=== PATIENT | female | born 1950 | race Caucasian/White ===

== ENCOUNTER 2018-08-21 09:22 | Inpatient (IN) ==
--- NOTE | 2018-08-21 09:36 | Emergency Department Note ---
ED Disposition Clinical Impression: COPD exacerbation, Tobacco use disorder, Respiratory failure with hypercapnia, LLL pneumonia, Leukemoid reaction Disposition: Still a Patient Condition on Discharge: Serious Referrals: Provider,Referral, MD [Primary Care Provider] - - Critical Care Critical Care Time: Yes Attestation: On , the high probability of a clinically significant, sudden or life threatenin g deterioration of the following system(s) required my full and direct attention, intervention and personal management. The time I documented below is in addition to time spent performing reported procedures but includes the following listed in this critical care notation. Total Critical Care Time: 30 Vital system(s) involved:: Respiratory Failure My critical care processes included: Assessment & monitoring of V/S, Initial and Re-exams, Data Review/Interpretation, Coordinating Care, Medication Orders and management, Documentation Medical Decision Making - Medical Records Medical records reviewed: Yes: I reviewed the patient's medical records. - Ghanshyam Inquiry Pt receiving controlled substance: No Ghanshyam was queried for this patient: No Vital Signs: 08/21/18 09:23 08/21/18 09:44 Temperature 98.1 F Temperature Source Rectal Pulse Rate [Right Radial] 122 H 122 H Respiratory Rate 30 H Blood Pressure [Right Arm] 141/84 H 141/84 H Blood Pressure Mean [Right Arm] 103 103 Blood Pressure Source [Right Arm] Automatic Cuff Automatic Cuff Blood Pressure Position [Right Arm] Supine Supine 02 Sat by Pulse Oximetry 99 Oxygen Delivery Method Non-Rebreather - Lab Data Lab Results 08/21/18 09:26: Specimen Source Right radial, O2 % 100, ABG pH 7.32 L, ABG pCO2 58.3 H, ABG pO2 76.0 L, ABG HCO3 29.5 H, ABG Total CO2 31.3 H, ABG O2 Saturation 94, ABG Base Excess 3.4 H, José Miguel Test Acceptable 08/21/18 10:00: WBC 66.8 H*, RBC 4.98, Hgb 15.7, Hct 48.3 H, MCV 97.2, MCH 31.5 H, MCHC 32.4, RDW 15.8, Plt Count 451 H, MPV 8.6, Neut % (Auto) 93.7 H, Lymph % (Auto) 0.8 L, [place] % (Auto) 4.5, Eos % (Auto) 0.1, Baso % (Auto) 1.0, Neut # (Auto) 62.6 H, Lymph # (Auto) 0.5 L, [place] # (Auto) 3.0 H, Eos # (Auto) 0.0, Baso # (Auto) 0.7 H 08/21/18 10:00: Sodium 138, Potassium 2.6 L*, Chloride 96 L, Carbon Dioxide 31, Anion Gap 13.6, BUN 56 H, Creatinine 1.18 H, Estimated Creat Clear 34, Estimated GFR 46 L, Est GFR ( Amer) 55 L, Glucose 197 H, Calcium 9.0, Total Bilirubin 1.9 H, AST 43 H, ALT 27, Alkaline Phosphatase 199 H, Troponin I < 0.02, Total Protein 7.4, Albumin 1.9 L, Globulin 5.5 H, Albumin/Globulin Ratio 0.3 L 08/21/18 10:00: Lactate 4.3 H Result diagrams: 08/21/18 10:00 08/21/18 10:00 Orders (Tests/Meds): ED MEDICATIONS Generic Name Dose Route Start Last Admin Trade Name Freq PRN Reason Stop Dose Admin Albuterol/Ipratropium 3 ml 08/21/18 09:30 08/21/18 09:48 Duoneb 3ml [facility] 09/20/18 09:29 3 ml Q1H CHICA Administration Azithromycin 500 mg/ Sodium 250 mls @ 250 mls/hr 08/21/18 10:45 Chloride IV 09/04/18 10:44 Q24H CHICA Protocol Potassium Chloride/Sodium Chloride 1,000 mls @ 75 mls/hr 08/21/18 10:45 Kcl 20 Meq In Ns 1,000 Ml Iv Soln IV 09/20/18 10:44 .[id number] CHICA Sodium Chloride 1,000 mls @ 999 mls/hr 08/21/18 10:45 Sod Chlor 0.9% 1000ml Bag IV 08/21/18 11:45 .Q1H1M CHICA Sodium Chloride 3 ml 08/21/18 09:44 Sodium Chloride 3% 15ml [facility] 09/20/18 09:43 ONCE PRN INDUCE SPUTUM COLLECTION Discontinued Medications Generic Name Dose Route Start Last Admin Trade Name Freq PRN Reason Stop Dose Admin Ceftriaxone Sodium 1 gm/ 50 mls @ 100 mls/hr 08/21/18 09:29 05/21/19 09:52 Sodium Chloride IV 08/21/18 09:58 100 mls/hr ONCE ONE Administration Protocol Sodium Chloride 1,000 mls @ 999 mls/hr 08/21/18 09:30 08/21/18 09:52 Sod Chlor 0.9% 1000ml Bag IV 08/21/18 10:30 999 mls/hr .Q1H1M CHICA Administration Methylprednisolone Sodium Succinate 125 mg 08/21/18 09:29 08/21/18 09:47 Solu-Medrol 125mg/2ml Vial IV 08/21/18 09:30 125 mg ONCE ONE Administration Nitroglycerin 0.5 gm 08/21/18 09:29 Nitroglycerin 1 Inch Oint Udp TD 08/21/18 09:30 ONCE ONE Potassium Chloride 40 meq 08/21/18 10:36 Klor-Con 20meq Tablet PO 08/21/18 10:37 ONCE ONE ORDERS Category Date Time Status Chest XR -- portable [XR chest portable] Stat Exams 08/21/18 09:27 Taken B-Type Natriuretic Peptide Stat Lab 08/21/18 10:00 Received Complete Blood Count Auto Diff Stat Lab 08/21/18 10:00 Results UA [Urinalysis and Microscopic] Stat Lab 08/21/18 09:26 Ordered Blood Culture Stat Micro 08/21/18 10:00 Received Sputum Culture & Gram Stain Stat Micro 08/21/18 09:44 Ordered ECG Request by /Tiki Stat Y 08/21/18 09:26 Ordered - Radiology Data #1 Image(s): Chest Image Reviewed: Yes I reviewed the patient's radiology image Preliminary Findings: Abnormal Preliminary chest x-ray read by the prior by the emergency medicine physician. Left lower lobe infiltrates. Medical Decision Narrative: The patient's blood gas was 7.32/50 8/76 oxygen saturation is 94 base excess of 3.4 and CO2 is 29.5. The patient started on BiPAP for impending acute respiratory failure. 0955 I spoke briefly with her son who is on the way and she is a full code, she has no local primary care physician. Son stated he will be here shortly. 1010 her son Mj Schilling arrived and we discussed her clinical situation. Both the patient and her son are agreeable for a BiPAP and intubation if needed for short-term. She denied having history of leukemia. She did have prior elevated white count. [address] Cline who agreed to admit the patient for pneumonia and respiratory failure protocol. Resp/SOB HPI - General Stated Complaint: SOB Time Seen by Provider: 08/21/18 09:25 Mode of Arrival: Ambulatory Source of Information: Patient, EMS Limitations: Physical Limitations - History of Present Illness 68 years old white female COPD oxygen dependent who continues to smoke. The patient reports that she has been short of breath for the past week with cough, chest congestion and progressively getting short of breath. Today her son contacted the EMS upon arrival her oxygen saturation was in the 70%s on 3 L/min [place]. The EMS staff increase her oxygen to 6 L with improvement of her oxygenation to 90% and she was brought to the ED. On arrival to the ED the patient was in a moderate respiratory distress, tachypnea, speaking short sentences and using abdominal muscle for respiration, her blood pressure was 163/108 mmHg and heart rate of 77/minute. The patient was placed on nonrebreather, ordered neb treatment, blood gases, BiPAP 8/4 with 100% oxygen and stat chest x-ray. Nursing staff obtained pneumonia blood work. She will be assisted regularly for impending acute respiratory failure. No family on the bedside. MD Complaint: shortness of breath Onset (ago): week(s) (The patient reports symptoms started a week ago.) Severity: moderate Consistency/Duration: constant Relieving factors: oxygen, bronchodilators, upright position Exacerbating factors: lying flat Known history of: COPD Associated symptoms: fever, cough, sputum production Treatment prior to arrival: oxygen - Related Data Home oxygen amount: other (6 L nasal cannula by EMS crew.) Home Medications Medication Instructions Recorded Confirmed Unobtainable 08/21/18 08/21/18 Allergies Allergy/AdvReac Type Severity Reaction Status Date / Time Sulfa (Sulfonamide AdvReac Mild NA-NAUSEA Verified 08/21/18 09:47 Antibiotics) [facility] History - Hepatitis A Screen Attestation statement:: This patient has been screened for Hepatitis A risk factors. I have reviewed the patient's past medical history: Yes ROS Obtained: Yes All systems reviewed & no additional complaints Physical Exam - General General appearance: alert, in distress, other (The patient is in moderate respiratory distress, speaking short sentences and using accessory muscles.) - Head Head exam: atraumatic, normocephalic, normal inspection - Eye Eye exam: Present: normal appearance, PERRL, EOMI. Absent: scleral icterus, nystagmus - ENT ENT exam: Present: normal exam, normal oropharynx, mucous membranes dry, TM's normal bilaterally, normal external ear exam, other (Patient seems dehydrated with dry tongue. ) - Neck Neck exam: Present: normal inspection, full ROM, trachea midline. Absent: meningismus, lymphadenopathy - Chest Chest inspection: Present: normal inspection. Absent: tenderness, rash, abscess - Respiratory Respiratory exam: Present: respiratory distress, wheezes, accessory muscle use, other (Bilateral coarse respiratory sounds worse on the right than left. ) - Cardiovascular Cardiovascular exam: Present: regular rate, normal rhythm, normal heart sounds. Absent: JVD - Abdominal Exam Abdominal exam: Present: soft, normal bowel sounds, other (Equal strong and symmetrical femoral pulsation. ). Absent: distention, tenderness, guarding, rebound, rigidity, Jones's sign, tenderness at McBurney's Point - External exam: Present: normal external exam - Extremities Exam Extremities exam: Present: normal inspection, full ROM, normal capillary refill. Absent: tenderness, pedal edema, calf tenderness - Back Exam Back exam: Absent: CVA tenderness (R), CVA tenderness (L), paraspinal tenderness - Neurological Exam Neurological exam: Present: alert, CN II-XII intact, motor sensory deficit, reflexes normal - Skin Skin exam: Present: dry, intact, pallor - Lymphatic Lymphatic Findings: no adenopathy
[2018-08-21 09:37] LABS: ABG Base Excess 3.4 mmol/L (-2.4-2.3); ABG HCO3 29.5 mmhg (22.0-26.0); ABG Oxygen Saturation 94 % (90-100); ABG PH 7.32 mmol/L (7.35-7.45); ABG TCO2 31.3 mmhg (23-27)
[2018-08-21 09:38] LABS: Allen's Test Acceptable; Oxygen 100 %
[2018-08-21 09:41] LABS: ABG PCO2 58.3 mmhg (35.0-45.0)
[2018-08-21 10:25] LABS: Basophils # 0.7 K/mm3 (0-0.2); Eosinophils % 0.1 % (0.1-12.0); Hematocrit 48.3 % (37.0-47.0); Hemoglobin 15.7 g/dL (12.2-16.2); Lymphocytes # 0.5 K/mm3 (0.7-4.5); Lymphocytes % 0.8 % (10-50); Mean Corpuscular HGB Conc 32.4 g/dL (31.8-35.4); Mean Corpuscular Hemoglobin 31.5 pg (27.0-31.2); Mean Corpuscular Volume 97.2 fl (81-99); Mean Platelet Volume 8.6 fl (7.4-10.4); Monocytes % 4.5 % (1.7-9.3); Neutrophils # 62.6 K/mm3 (1.8-7.8); Neutrophils % 93.7 % (37.0-80.0); Platelet Count 451 K/mm3 (142-424); Red Blood Count 4.98 M/mm3 (4.20-5.40); Red Cell Distribution Width 15.8 % (11.5-17.5)
[2018-08-21 10:26] LABS: White Blood Count 66.8 K/mm3 (4.8-10.8)
[2018-08-21 10:32] LABS: Alanine Aminotransferase 27 U/L (12-78); Albumin Level 1.9 gm/dL (3.4-5.0); Albumin/Globulin Ratio 0.3 (1.1-1.8); Alkaline Phosphatase 199 U/L (46-116); Anion Gap 13.6 mEq/L (5-15); Aspartate Amino Transferase 43 U/L (15-37); Bilirubin,Total 1.9 mg/dL (0.2-1.0); Blood Urea Nitrogen 56 mg/dL (7-18); Carbon Dioxide 31 mmol/L (21.0-32.0); Chloride 96 mmol/L (98-107); Globulin 5.5 gm/dl (1.3-3.2); Glucose 197 mg/dL (74-106); Sodium 138 mmol/L (136-145); Total Protein,Serum 7.4 gm/dL (6.4-8.2)
[2018-08-21 10:38] LABS: Potassium 2.6 mmoL/L (3.5-5.1)
[2018-08-21 10:44] LABS: Lymphocytes % 5 % (10-50); Neutrophils % 81 % (42-76); RBC Morphology Normal; Total Cells Counted 100
[2018-08-21 11:15] LABS: Microscopic, Urine URINE MICROSCOPIC (MICROSCOPIC)
[2018-08-21 11:26] LABS: Appearance,Urine SL CLOUDY (Clear); Blood, Urine 1+ (Negative); Color,Urine AMBER (Yellow); Glucose,Urine (UA) Negative (Negative); Ketones,Urine Negative (Negative); Leukocyte Esterase,Urine Negative (Negative); PH,Urine 5.5 (5.0-8.5); Protein,Urine 1+ (Negative); Specific Gravity, Urine 1.025 (1.005-1.030); Urobilinogen,Urine >=8.0 EU/dl (0.2)
[2018-08-21 11:33] LABS: Bilirubin,Urine Negative (Negative)
[2018-08-21 11:42] LABS: Amorphous Sediment,Urine 3+ /lpf; Bacteria,Urine 2+ /lpf; Squamous Epithelial Cell,Urine Occasional #/hpf (0-5)
--- NOTE | 2018-08-21 12:44 | History & Physical Report ---
*Admission Date: 08/21/18 <Daniella Rivers 08/21/18 13:59> *Chief complaint: shrtness of breath <Daniella Rivers 08/21/18 13:59> *History of present illness: From the ER note:Ms Schilling is a 68 year old white female with a history of COPD oxygen dependent who continues to smoke. The patient reports that she has been short of breath for the past week with cough, chest congestion and progressively getting short of breath. Today her son contacted the EMS. Upon arrival her oxygen saturation was in the 70's on 3 L/min per [place]. The EMS staff increase her oxygen to 6 L with improvement of her oxygenation to 90% and she was brought to the ED. On arrival to the ED the patient was in moderate respiratory distress, tachypnea, speaking short sentences and using abdominal muscle for respiration. Her blood pressure was 163/108 mmHg and heart rate 77/minute. The patient was placed on nonrebreather, ordered neb treatment, blood gases, BiPAP 8/ with 100% oxygen and stat chest x-ray. History also obtained from son.He noticed that she was not feeling well on 08/18/18 with weakness, cough and some confusion. With evaluation in the ER CXR revealed pneumonia with a possible underlying mass; WBC was 66,000 and K+ 2.6. ABG's revealed a respiratory acidosis with PO2 76. She was started on Zithromax and Rocephin and given duoneb< PO K+ and IV fluid bolus. At time of initial exam after arrival to Med/surg unit patient was in acute respiratory distress on BIPAP. She did try to answer questions but was difficult to understand. She was SOB and indicated abdominal pain. <Daniella Rivers 08/21/18 15:43> [facility] History Medical History: Reports:: Chronic Obstructive Pulmonary Disease (COPD), Depression Denies:: Diabetes Mellitus Type 1, Diabetes Mellitus Type 2 <RiversDaniella 08/21/18 15:43> *Have you ever received a pneumonia vaccine?: No <Daniella Rivers Yanelis 08/21/18 12:44> *Have you received a flu vaccine this season?: No <SilvestreDaniella - 08/21/18 12:44> Comment: unknown <Rivers,Daniella - 08/21/18 15:43> - *Social History Smoking Status: Current every day smoker <Daniella Rivers 08/21/18 15:43> # Packs/Day (cigarettes): 1 <Daniella Rivers Yanelis 08/21/18 15:43> Alcohol Intake: never <Daniella Rivers 08/21/18 12:44> *Occupational Status:: retired <Daniella Rivers Yanelis 08/21/18 12:44> Household Members: family <Daniella Rivers 08/21/18 15:43> *Travel in the last 8 weeks: None <Daniella Rivers 08/21/18 12:44> - Psychiatric History Expresses thoughts of harming self/others: None <SilvestreDaniella - 08/21/18 12:44> Suicide Plan Description: No Plan <Daniella Rivers 08/21/18 12:44> Pschychiatric History:: Reports:: Depression <SilvestreDaniella Yanelis 08/21/18 15:43> Family Hx:: Unable to obtain <SilvestreDaniella 08/21/18 15:43> Review of Systems - Constitutional Reports malaise, Reports weakness <SilvestreDaniella 08/21/18 15:43> - ENT Denies headache(s) <SilvestreDaniella 08/21/18 15:43> - *Cardiovascular Reports shortness of breath, Denies chest pain, Denies leg swelling <RiversDaniella 08/21/18 15:43> - *Respiratory Reports chest congestion, Reports cough, Reports shortness of breath <RiversDaniella 08/21/18 15:43> - *Gastrointestinal Reports abdominal pain, Reports nausea, Denies heartburn, Denies vomiting <RiversDaniella 08/21/18 15:43> Comments: does not know when her bowels last moveed <Rivers,Daniella - 08/21/18 15:43> - *Genitourinary Denies difficulty urinating <RiversDaniella 08/21/18 15:43> - *Musculoskeletal Reports abnormal walking, Reports muscle weakness <Rivers,Daniella 08/21/18 15:43> - *Neurologic Reports behavioral changes <SilvestreDaniella 08/21/18 15:43> Comments: AMS <SilvestreDaniella - 08/21/18 15:43> - Psychiatric Reports depression <Daniella Rivers - 08/21/18 15:43> Meds Home Medications Medication Instructions Recorded Confirmed Type Albuterol Sulfate [Albuterol 2.5 mg IH Q4HP PRN 08/21/18 08/21/18 History 0.083% 2.5mg/3mL neb] Clotrimazole/Betamethasone Dip 1 dose TOPICAL DAILY PRN 08/21/18 08/21/18 History [Lotrisone cream 15gm tube] Cyclobenzaprine HCl 10 mg PO TID PRN 08/21/18 08/21/18 History [Cyclobenzaprine 10mg Tab] Diclofenac Sodium [Diclofenac Sod 100 gm TP DAILY PRN 08/21/18 08/21/18 History 100gm Topical Gel] Fluticasone/Umeclidin/Vilanter 2 puffs INHALATION DAILY 08/21/18 08/21/18 History [Treleshania Ellipta 100-62.5-25] Linaclotide [Linzess] 145 mcg PO DAILY 08/21/18 08/21/18 History Pantoprazole Sodium [Protonix 40mg 40 mg PO DAILY 08/21/18 08/21/18 History tablet] Sertraline HCl [Zoloft 100mg 100 mg PO DAILY 08/21/18 08/21/18 History tablet] Valacyclovir HCl [Valacyclovir] 1 gm PO DAILY 08/21/18 08/21/18 History <Kevin Cline - 08/21/18 19:16> Allergies Allergy/AdvReac Type Severity Reaction Status Date / Time Sulfa (Sulfonamide AdvReac Mild NA-NAUSEA Verified 08/21/18 09:47 Antibiotics) <Kevin Cline - 08/21/18 19:16> Exam Vital signs and Labs for Last 24 Hours: Temp Pulse Resp BP Pulse Ox 98.2 F 120 H 37 H 113/65 93 L 08/21/18 13:00 08/21/18 17:30 08/21/18 17:30 08/21/18 17:30 08/21/18 17:30 Laboratory Results - last 24 hr 08/21/18 09:26: Specimen Source Right radial, O2 % 100, ABG pH 7.32 L, ABG pCO2 58.3 H, ABG pO2 76.0 L, ABG HCO3 29.5 H, ABG Total CO2 31.3 H, ABG O2 Saturation 94, ABG Base Excess 3.4 H, José Miguel Test Acceptable 08/21/18 10:00: WBC 66.8 H*, RBC 4.98, Hgb 15.7, Hct 48.3 H, MCV 97.2, MCH 31.5 H, MCHC 32.4, RDW 15.8, Plt Count 451 H, MPV 8.6, Neut % (Auto) 93.7 H, Lymph % (Auto) 0.8 L, [place] % (Auto) 4.5, Eos % (Auto) 0.1, Baso % (Auto) 1.0, Neut # (Auto) 62.6 H, Lymph # (Auto) 0.5 L, [place] # (Auto) 3.0 H, Eos # (Auto) 0.0, Baso # (Auto) 0.7 H, Total Counted 100, Neutrophils % (Manual) 81 H, Band Neutrophils % 14.0 H, Lymphocytes % (Manual) 5 L, Platelet Estimate Slight increase, RBC Morphology Normal 08/21/18 10:00: Sodium 138, Potassium 2.6 L*, Chloride 96 L, Carbon Dioxide 31, Anion Gap 13.6, BUN 56 H, Creatinine 1.18 H, Estimated Creat Clear 34, Estimated GFR 46 L, Est GFR ( Amer) 55 L, Glucose 197 H, Calcium 9.0, Total Bilirubin 1.9 H, AST 43 H, ALT 27, Alkaline Phosphatase 199 H, Troponin I < 0.02, Total Protein 7.4, Albumin 1.9 L, Globulin 5.5 H, Albumin/Globulin Ratio 0.3 L 08/21/18 10:00: Lactate 4.3 H 08/21/18 10:00: B-Natriuretic Peptide 1190 H 08/21/18 11:09: Urine Color Lucy, Urine Appearance Sl cloudy, Urine pH 5.5, Ur Specific [place] 1.025, Urine Protein 1+, Urine Glucose (UA) Negative, Urine Ketones Negative, Urine Blood 1+, Urine Nitrate Negative, Urine Bilirubin Negative, Urine Urobilinogen >=8.0, Ur Leukocyte Esterase Negative, Urine WBC 10-20, Ur Squamous Epith Cells Occasional, Ur Transition Epith Cell 3-5, Amorphous Sediment 3+, Urine Bacteria 2+ 08/21/18 13:00: Specimen Source Right radial, O2 % 50, ABG pH 7.22 L*, ABG pCO2 66.4 H, ABG pO2 66.6 L, ABG HCO3 26.7 H, ABG Total CO2 28.7 H, ABG O2 Saturation 89 L, ABG Base Excess -1.0, José Miguel Test Acceptable, Vent Rate 14, Tidal Volume Bipap 14/1008/21/18 14:30: Lactate 2.8 H 08/21/18 15:25: Specimen Source Right radial, O2 % 55, ABG pH 7.26 L, ABG pCO2 57.9 H, ABG pO2 109.6 H, ABG HCO3 25.5, ABG Total CO2 27.2 H, ABG O2 Saturation 98, ABG Base Excess -1.6, José Miguel Test Acceptable, Vent Rate 14, Tidal Volume Bipap 14/0108/21/18 17:12: Lactate 2.3 H <SonKevin Korey - 08/21/18 19:16> Temp Pulse Resp BP Pulse Ox 98.0 F 74 22 153/67 H 94 L 08/21/18 12:27 08/21/18 12:27 08/21/18 12:27 08/21/18 12:27 08/21/18 12:08 Laboratory Results - last 24 hr 08/21/18 09:26: Specimen Source Right radial, O2 % 100, ABG pH 7.32 L, ABG pCO2 58.3 H, ABG pO2 76.0 L, ABG HCO3 29.5 H, ABG Total CO2 31.3 H, ABG O2 Saturation 94, ABG Base Excess 3.4 H, José Miguel Test Acceptable 08/21/18 10:00: WBC 66.8 H*, RBC 4.98, Hgb 15.7, Hct 48.3 H, MCV 97.2, MCH 31.5 H, MCHC 32.4, RDW 15.8, Plt Count 451 H, MPV 8.6, Neut % (Auto) 93.7 H, Lymph % (Auto) 0.8 L, [place] % (Auto) 4.5, Eos % (Auto) 0.1, Baso % (Auto) 1.0, Neut # (Auto) 62.6 H, Lymph # (Auto) 0.5 L, [place] # (Auto) 3.0 H, Eos # (Auto) 0.0, Baso # (Auto) 0.7 H, Total Counted 100, Neutrophils % (Manual) 81 H, Band Neutrophils % 14.0 H, Lymphocytes % (Manual) 5 L, Platelet Estimate Slight increase, RBC Morphology Normal 08/21/18 10:00: Sodium 138, Potassium 2.6 L*, Chloride 96 L, Carbon Dioxide 31, Anion Gap 13.6, BUN 56 H, Creatinine 1.18 H, Estimated Creat Clear 34, Estimated GFR 46 L, Est GFR ( Amer) 55 L, Glucose 197 H, Calcium 9.0, Total Bilirubin 1.9 H, AST 43 H, ALT 27, Alkaline Phosphatase 199 H, Troponin I < 0.02, Total Protein 7.4, Albumin 1.9 L, Globulin 5.5 H, Albumin/Globulin Ratio 0.3 L 08/21/18 10:00: Lactate 4.3 H 08/21/18 11:09: Urine Color Lucy, Urine Appearance Sl cloudy, Urine pH 5.5, Ur Specific [place] 1.025, Urine Protein 1+, Urine Glucose (UA) Negative, Urine Ketones Negative, Urine Blood 1+, Urine Nitrate Negative, Urine Bilirubin Negative, Urine Urobilinogen >=8.0, Ur Leukocyte Esterase Negative, Urine WBC 10-20, Ur Squamous Epith Cells Occasional, Ur Transition Epith Cell 3-5, Amorphous Sediment 3+, Urine Bacteria 2+ <Daniella Rivers - 08/21/18 12:44> I & O for Last 24 hours: Intake & Output 08/19/18 08/20/18 08/21/18 08/22/18 11:59 11:59 11:59 11:59 Intake Total 580 / 580 Balance 580 / 580 Weight 100 lb 107 lb 9 oz <Kevin Cline - 08/21/18 19:16> Intake & Output 08/19/18 08/20/18 08/21/18 08/22/18 11:59 11:59 11:59 11:59 Weight 100 lb <Daniella Rivers - 08/21/18 12:44> Radiology Reports for the Last 24 Hours: 08/21/18 CXR IMPRESSION: 1. Opacified left mid and lower lung zone consistent with pneumonia with possible superimposed mass 2. Right apical pleural thickening nonspecific and could be post inflammatory scarring or pleural-based mass. This area was previously secured by pneumonia on 717 <[facility] 08/21/18 15:43> - Constitutional severe distress, thin, cooperative, somnolent <[facility] 08/21/18 15:43> Comments: has BIPAP on and does try to answer questions <[facility] 08/21/18 15:43> - *Routine HEENT Exam Head: Present: normocephalic, atraumatic <[facility] 08/21/18 15:43> Eye: Present: PERRL <[facility] 08/21/18 15:43> - *Routine Neck Exam Absent: lymphadenopathy, thyromegaly <[facility] 08/21/18 15:43> - *Routine Respiratory Exam Present: accessory muscle use, respiratory distress, wheezes <[facility] 08/21/18 15:43> Comments: bilateral crackles anteriorly and posteriorly <[facility] 08/21/18 15:43> - *Routine Cardiovascular Exam Comments: monitor showing ST <SilvestreDaniella 08/21/18 15:43> - *Routine Abdominal Exam Present: soft, tenderness. Absent: distended <[facility] 08/21/18 15:43> Comments: unable to hear BS; tender in RMQ and RLQ <[facility] 08/21/18 15:43> - *Routine Extremities Exam Absent: edema <Rivers,Daniella 08/21/18 15:43> - *Routine Skin Exam Present: dry, mottling (bilateral feet, knees, and hands) <[facility] 08/21/18 15:43> Comments: cool <[facility] 08/21/18 15:43> - *Routine Neurological Exam lethargic <Rivers,[facility] 08/21/18 15:43> Assessment and Plan (1) Respiratory failure with hypercapnia Current visit: Yes Status: Acute Category: Medical Code(s): J96.92 - Respiratory failure, unspecified with hypercapnia (2) LLL pneumonia Current visit: Yes Status: Acute Category: Medical Code(s): J18.1 - Lobar pneumonia, unspecified organism (3) Abdominal pain Current visit: Yes Status: Acute Category: Medical Code(s): R10.9 - Unspecified abdominal pain (4) COPD exacerbation Current visit: Yes Status: Acute Category: Medical Code(s): J44.1 - Chronic obstructive pulmonary disease with (acute) exacerbation (5) Leukemoid reaction Current visit: Yes Status: Acute Category: Medical Code(s): D72.823 - Leukemoid reaction (6) Tobacco use disorder Current visit: Yes Status: Chronic Category: Medical Code(s): F17.200 - Nicotine dependence, unspecified, uncomplicated <Kevin Cline - 08/21/18 19:16> (1) Abdominal pain Current visit: Yes Status: Acute Category: Medical Code(s): R10.9 - Unspecified abdominal pain (2) COPD exacerbation Current visit: Yes Status: Acute Category: Medical Code(s): J44.1 - Chronic obstructive pulmonary disease with (acute) exacerbation (3) LLL pneumonia Current visit: Yes Status: Acute Category: Medical Code(s): J18.1 - Lobar pneumonia, unspecified organism (4) Leukemoid reaction Current visit: Yes Status: Acute Category: Medical Code(s): D72.823 - Leukemoid reaction (5) Respiratory failure with hypercapnia Current visit: Yes Status: Acute Category: Medical Code(s): J96.92 - Respiratory failure, unspecified with hypercapnia (6) Tobacco use disorder Current visit: Yes Status: Chronic Category: Medical Code(s): F17.200 - Nicotine dependence, unspecified, uncomplicated <Daniella Rivers - 08/21/18 15:16> - Assessment and plan all Dx Assessment and Plan for all problems:: Patient seen and examined. Concur with above for now. Data deficit. Will try to get more information when son returns to hospital. <Kevin Cline - 08/21/18 19:16> has been started on IV Zithromax, and rocephin with duonebs and steriods; also to receive K+ boluses; will remain on BIPAP until respiratorty status is stable; oncology has been consulted; will have a CT of the chest and abdomen/pelvis <Daniella Rivers - 08/21/18 15:43>
[2018-08-21 13:08] LABS: ABG HCO3 26.7 mmhg (22.0-26.0); ABG Oxygen Saturation 89 % (90-100); ABG PH 7.22 mmol/L (7.35-7.45); ABG PO2 66.6 mmhg (80-100); ABG TCO2 28.7 mmhg (23-27)
[2018-08-21 13:11] LABS: Allen's Test Acceptable; Oxygen 50 %
[2018-08-21 13:12] LABS: ABG PCO2 66.4 mmhg (35.0-45.0)
[2018-08-21 16:03] LABS: ABG Base Excess -1.6 mmol/L (-2.4-2.3); ABG HCO3 25.5 mmhg (22.0-26.0); ABG Oxygen Saturation 98 % (90-100); ABG PH 7.26 mmol/L (7.35-7.45); ABG PO2 109.6 mmhg (80-100); ABG TCO2 27.2 mmhg (23-27)
[2018-08-21 16:04] LABS: Oxygen 55 %
[2018-08-21 16:05] LABS: ABG PCO2 57.9 mmhg (35.0-45.0); Allen's Test Acceptable
[2018-08-21 20:28] LABS: Amphetamine/Metha Screen,Urine Negative ng/mL (<1000); Barbiturates Screen,Urine Negative ng/mL (<200); Benzodiazepines Screen,Urine Negative ng/mL (<200); Cannabinoid Screen,Urine Positive ng/mL (<50); Cocaine Screen,Urine Negative ng/mL (<300); Methadone Screen,Urine Negative ng/mL (<300); Opiate Screen,Urine Negative ng/mL (<300); Phencyclidine Screen,Urine Negative ng/mL (<25)
[2018-08-21 21:26] LABS: Anion Gap 16.6 mEq/L (5-15); Calcium 8.2 mg/dL (8.5-10.1); Potassium 3.6 mmoL/L (3.5-5.1)
[2018-08-22 05:55] LABS: Basophils # 0.2 K/mm3 (0-0.2); Basophils % 0.4 % (0.1-2.0); Eosinophils % 0.1 % (0.1-12.0); Hematocrit 42.7 % (37.0-47.0); Lymphocytes # 1.2 K/mm3 (0.7-4.5); Lymphocytes % 2.1 % (10-50); Mean Corpuscular HGB Conc 31.5 g/dL (31.8-35.4); Mean Corpuscular Hemoglobin 31.1 pg (27.0-31.2); Mean Corpuscular Volume 98.8 fl (81-99); Mean Platelet Volume 8.7 fl (7.4-10.4); Monocytes # 3.1 K/mm3 (0.1-1.0); Monocytes % 5.5 % (1.7-9.3); Neutrophils # 51.3 K/mm3 (1.8-7.8); Neutrophils % 91.9 % (37.0-80.0); Platelet Count 354 K/mm3 (142-424); Red Blood Count 4.32 M/mm3 (4.20-5.40); Red Cell Distribution Width 16.1 % (11.5-17.5)
[2018-08-22 06:05] LABS: Hemoglobin 13.5 g/dL (12.2-16.2); White Blood Count 55.8 K/mm3 (4.8-10.8)
[2018-08-22 06:24] LABS: Albumin Level 1.5 gm/dL (3.4-5.0); Albumin/Globulin Ratio 0.5 (1.1-1.8); Anion Gap 18.7 mEq/L (5-15); Bilirubin,Total 1.5 mg/dL (0.2-1.0); Globulin 3.3 gm/dl (1.3-3.2); Total Protein,Serum 4.8 gm/dL (6.4-8.2)
[2018-08-22 06:25] LABS: Potassium 4.7 mmoL/L (3.5-5.1)
[2018-08-22 06:40] LABS: ABG Base Excess -0.6 mmol/L (-2.4-2.3); ABG HCO3 25.9 mmhg (22.0-26.0); ABG Oxygen Saturation 92 % (90-100); ABG PO2 67.2 mmhg (80-100); ABG TCO2 27.6 mmhg (23-27)
[2018-08-22 06:43] LABS: ABG PCO2 54.2 mmhg (35.0-45.0)
--- NOTE | 2018-08-22 07:19 | Pharmacy Consult Notes ---
[facility] Pharmacy VTE Monitoring - Patient Demographics Admission date: 08/21/18 Report Date: 08/22/18 Time: 07:19 Allergies/Adverse Reactions: Patient Allergies Sulfa (Sulfonamide Antibiotics) Adverse Reaction (Mild, Verified 08/21/18 09:47) NA-NAUSEA Height: 1.57 m Weight: 49.045 kg Patient Problems: Current Active Problems (Updated 08/21/18 @ 15:43 by Daniella Rivers APRN) COPD exacerbation (Acute) Tobacco use disorder (Chronic) Respiratory failure with hypercapnia (Acute) LLL pneumonia (Acute) Leukemoid reaction (Acute) Abdominal pain (Acute) - VTE Risk Labs: VTE Related Lab Results Hgb 13.5 g/dL (12.2-16.2) D 08/22/18 05:45 Hct 42.7 % (37.0-47.0) 08/22/18 05:45 Plt Count 354 K/mm3 (142-424) 08/22/18 05:45 BUN 50 mg/dL (7-18) H 08/22/18 05:45 Creatinine 0.78 mg/dL (0.55-1.02) D 08/22/18 05:45 Estimated Creat Clear 43 mL/min (50-200) 08/22/18 05:45 VTE Score: 4 VTE Risk Level: Low Risk - Prophylaxis VTE Prophylaxis Ordered?: Yes Types of VTE Prophylaxis: TEDS Knee High Location of Applied Device: Bilateral Lower Extremeties - VTE Diagnosis Confirmed Treatment or plan recommended: Continue Current Treatment
[2018-08-22 07:58] LABS: Calcium 7.2 mg/dL (8.5-10.1)
--- NOTE | 2018-08-22 08:21 | Progress Note ---
<Daniella Rivers - Last Filed: 08/22/18 08:18> Internal Medicine - PN: Subj *Date: 08/22/18 *Time: 08:18 Interval history: Nursing staff does not feel the patient is any better. She continues to be poorly responsive but is restless at times. ABGs with less acidosis and P02 in the 60s. She remains on BiPAP at 55%. Respiratory rate has been in the 40s. Heart rates 120 after receiving metoprolol. IV fluids are at 75 NR with potassium. Blood drawn this morning was hemolyzed and therefore we will repeat BMP with deep line insertion. She is had about 500 mL of urine out since Mg catheter insertion. Echo has given completed. Unofficially patient has an pleural effusion Exam Vital signs and Labs for Last 24 Hours: Temp Pulse Resp BP Pulse Ox 99.3 F 123 H 32 H 130/68 99 08/21/18 20:00 08/22/18 05:59 08/22/18 04:03 08/22/18 05:59 08/22/18 05:59 Laboratory Results - last 24 hr 08/21/18 09:26: Specimen Source Right radial, O2 % 100, ABG pH 7.32 L, ABG pCO2 58.3 H, ABG pO2 76.0 L, ABG HCO3 29.5 H, ABG Total CO2 31.3 H, ABG O2 Saturation 94, ABG Base Excess 3.4 H, José Miguel Test Acceptable 08/21/18 10:00: WBC 66.8 H*, RBC 4.98, Hgb 15.7, Hct 48.3 H, MCV 97.2, MCH 31.5 H, MCHC 32.4, RDW 15.8, Plt Count 451 H, MPV 8.6, Neut % (Auto) 93.7 H, Lymph % (Auto) 0.8 L, [place] % (Auto) 4.5, Eos % (Auto) 0.1, Baso % (Auto) 1.0, Neut # (Auto) 62.6 H, Lymph # (Auto) 0.5 L, [place] # (Auto) 3.0 H, Eos # (Auto) 0.0, Baso # (Auto) 0.7 H, Total Counted 100, Neutrophils % (Manual) 81 H, Band Neutrophils % 14.0 H, Lymphocytes % (Manual) 5 L, Platelet Estimate Slight increase, RBC Morphology Normal 08/21/18 10:00: Sodium 138, Potassium 2.6 L*, Chloride 96 L, Carbon Dioxide 31, Anion Gap 13.6, BUN 56 H, Creatinine 1.18 H, Estimated Creat Clear 34, Estimated GFR 46 L, Est GFR ( Amer) 55 L, Glucose 197 H, Calcium 9.0, Total Bilirubin 1.9 H, AST 43 H, ALT 27, Alkaline Phosphatase 199 H, Troponin I < 0.02, Total Protein 7.4, Albumin 1.9 L, Globulin 5.5 H, Albumin/Globulin Ratio 0.3 L 08/21/18 10:00: Lactate 4.3 H 08/21/18 10:00: B-Natriuretic Peptide 1190 H 08/21/18 11:09: Urine Color Lcuy, Urine Appearance Sl cloudy, Urine pH 5.5, Ur Specific [place] 1.025, Urine Protein 1+, Urine Glucose (UA) Negative, Urine Ketones Negative, Urine Blood 1+, Urine Nitrate Negative, Urine Bilirubin Negative, Urine Urobilinogen >=8.0, Ur Leukocyte Esterase Negative, Urine WBC 10-20, Ur Squamous Epith Cells Occasional, Ur Transition Epith Cell 3-5, Amorphous Sediment 3+, Urine Bacteria 2+ 08/21/18 13:00: Specimen Source Right radial, O2 % 50, ABG pH 7.22 L*, ABG pCO2 66.4 H, ABG pO2 66.6 L, ABG HCO3 26.7 H, ABG Total CO2 28.7 H, ABG O2 Saturation 89 L, ABG Base Excess -1.0, José Miguel Test Acceptable, Vent Rate 14, Tidal Volume Bipap 14/1008/21/18 14:30: Lactate 2.8 H 08/21/18 15:25: Specimen Source Right radial, O2 % 55, ABG pH 7.26 L, ABG pCO2 57.9 H, ABG pO2 109.6 H, ABG HCO3 25.5, ABG Total CO2 27.2 H, ABG O2 Saturation 98, ABG Base Excess -1.6, José Miguel Test Acceptable, Vent Rate 14, Tidal Volume Bipap 14/0108/21/18 17:12: Lactate 2.3 H 08/21/18 19:24: Sodium 143, Potassium 3.6 D, Chloride 104, Carbon Dioxide 26, Anion Gap 16.6 H, BUN 53 H, Creatinine 1.01, Estimated Creat Clear 42, Estimated GFR 55 L, Est GFR ( Amer) 66, Glucose 144 H D, Calcium 8.2 L 08/21/18 20:08: Urine Opiates Screen Negative, Urine Methadone Screen Negative, Ur Barbituates Screen Negative, Ur Phencyclidine Scrn Negative, Ur Amphetamines Screen Negative, U Benzodiazepines Scrn Negative, Urine Cocaine Screen Negative, U Marijuana (THC) Screen Positive H 08/22/18 05:45: Sodium 149 H, Potassium 4.7 D, Chloride 110 H, Carbon Dioxide 25, Anion Gap 18.7 H, BUN 50 H, Creatinine 0.78 D, Estimated Creat Clear 43, Estimated GFR 74, Est GFR ( Amer) 89 D, Glucose 136 H, Calcium 7.2 L D, Total Bilirubin 1.5 H, AST 43 H, ALT 23, Alkaline Phosphatase 169 H, Total Protein 4.8 L D, Albumin 1.5 L D, Globulin 3.3 H, Albumin/Globulin Ratio 0.5 L 08/22/18 05:45: Lactate 2.4 H 08/22/18 05:45: WBC 55.8 H*, RBC 4.32, Hgb 13.5 D, Hct 42.7, MCV 98.8, MCH 31.1, MCHC 31.5 L, RDW 16.1, Plt Count 354, MPV 8.7, Neut % (Auto) 91.9 H, Lymph % (Auto) 2.1 L, [place] % (Auto) 5.5, Eos % (Auto) 0.1, Baso % (Auto) 0.4, Neut # (Auto) 51.3 H, Lymph # (Auto) 1.2, [place] # (Auto) 3.1 H, Eos # (Auto) 0.0, Baso # (Auto) 0.2 08/22/18 05:45: Magnesium 2.7 H 08/22/18 06:23: Specimen Source R brachial, O2 % 55%, ABG pH 7.30 L, ABG pCO2 54.2 H, ABG pO2 67.2 L, ABG HCO3 25.9, ABG Total CO2 27.6 H, ABG O2 Saturation 92, ABG Base Excess -0.6 I & O for Last 24 hours: Intake & Output 08/19/18 08/20/18 08/21/18 08/22/18 11:59 11:59 11:59 11:59 Intake Total 1433 / 1433 Output Total 510 / 510 Balance 923 / 923 Weight 100 lb 108 lb 2 oz Radiology Reports for the Last 24 Hours: 08/21/2018 CT of the chest IMPRESSION: 1. Extensive left lower lobe pneumonia with very dense consolidation in the mid aspect of the left lower lobe. A pulmonary mass in this region could be obscured. Suggest follow-up exam following adequate treatment. 2. Probable postinflammatory fibrotic changes in the right upper lobe. 3. Left adrenal mass heterogeneous and somewhat hyperdense. Neoplasm or adrenal hemorrhage is considered. 08/21/2018 CT of the abdomen and pelvis IMPRESSION: 1. Left adrenal mass. Differential diagnosis would include metastatic disease, primary adrenal neoplasm, or adrenal hemorrhage 2. Possible enteritis 08/22/2018 repeat chest x-ray IMPRESSION: No change left lower lobe pneumonia and chronic changes on the right - Constitutional severe distress, cachectic, chronically ill appearing, somnolent Comments: Some restless activity - *Routine HEENT Exam Eye: Absent: PERRL (Pupils are pinpoint bilaterally) ENT: Absent: mucous membranes dry Comments: Bilateral eyes remain open most of the time. - *Routine Respiratory Exam Comments: Bilateral coarsE crackles throughout anteriorly and posteriorly - *Routine Cardiovascular Exam Present: RRR Comments: Sinus tachycardia on monitor - *Routine Abdominal Exam Present: soft. 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 No hepatosplenomegaly or palpable masses - *Routine Extremities Exam Present: pallor Comments: Moves all extremities. Remedies are cool to touch. Continues with some mottling of the knees fingers and toes. - *Routine Skin Exam Present: dry, pallor, mottling - *Routine Neurological Exam Present: altered mental status, moving all extremities Occasional focus on verbal stimulus. Does indicate that she hurts but cannot indicate where. Assessment and Plan (1) Respiratory failure with hypercapnia Current visit: Yes Status: Acute Category: Medical Code(s): J96.92 - Respiratory failure, unspecified with hypercapnia (2) LLL pneumonia Current visit: Yes Status: Acute Category: Medical Code(s): J18.1 - Lobar pneumonia, unspecified organism (3) Abdominal pain Current visit: Yes Status: Acute Category: Medical Code(s): R10.9 - Unspecified abdominal pain (4) COPD exacerbation Current visit: Yes Status: Acute Category: Medical Code(s): J44.1 - Chronic obstructive pulmonary disease with (acute) exacerbation (5) Leukemoid reaction Current visit: Yes Status: Acute Category: Medical Code(s): D72.823 - Leukemoid reaction (6) Tobacco use disorder Current visit: Yes Status: Chronic Category: Medical Code(s): F17.200 - Nicotine dependence, unspecified, uncomplicated (7) Altered mental status Current visit: Yes Status: Acute Category: Medical Code(s): R41.82 - Altered mental status, unspecified - Assessment and plan all Dx Assessment and Plan for all problems:: Obtaining records from her physician and [facility] admission in 2017. Nursing staff requested deep line in with inability to obtain adequate blood samples will have a 3 lm catheter inserted. We will then repeat some labs. With continued altered mental status and pupil constriction will obtain a CT of the head today. Will change duo nebs to every 6 hours. To note she repair has received no duo nebs since admission. <Kevin Cline - Last Filed: 08/22/18 14:29> Internal Medicine - PN: Subj *Date: 08/22/18 *Time: 14:26 Exam Vital signs and Labs for Last 24 Hours: Temp Pulse Resp BP Pulse Ox 99.9 F H 119 H 42 H 93/73 L 97 08/22/18 08:00 08/22/18 14:06 08/22/18 14:06 08/22/18 12:00 08/22/18 14:06 Laboratory Results - last 24 hr 08/21/18 14:30: Lactate 2.8 H 08/21/18 15:25: Specimen Source Right radial, O2 % 55, ABG pH 7.26 L, ABG pCO2 57.9 H, ABG pO2 109.6 H, ABG HCO3 25.5, ABG Total CO2 27.2 H, ABG O2 Saturation 98, ABG Base Excess -1.6, José Miguel Test Acceptable, Vent Rate 14, Tidal Volume Bipap 14/0108/21/18 17:12: Lactate 2.3 H 08/21/18 19:24: Sodium 143, Potassium 3.6 D, Chloride 104, Carbon Dioxide 26, Anion Gap 16.6 H, BUN 53 H, Creatinine 1.01, Estimated Creat Clear 42, Estimated GFR 55 L, Est GFR ( Amer) 66, Glucose 144 H D, Calcium 8.2 L 08/21/18 20:08: Urine Opiates Screen Negative, Urine Methadone Screen Negative, Ur Barbituates Screen Negative, Ur Phencyclidine Scrn Negative, Ur Amphetamines Screen Negative, U Benzodiazepines Scrn Negative, Urine Cocaine Screen Negative, U Marijuana (THC) Screen Positive H 08/22/18 05:45: Sodium 149 H, Potassium 4.7 D, Chloride 110 H, Carbon Dioxide 25, Anion Gap 18.7 H, BUN 50 H, Creatinine 0.78 D, Estimated Creat Clear 43, Estimated GFR 74, Est GFR ( Amer) 89 D, Glucose 136 H, Calcium 7.2 L D, Total Bilirubin 1.5 H, AST 43 H, ALT 23, Alkaline Phosphatase 169 H, Total Protein 4.8 L D, Albumin 1.5 L D, Globulin 3.3 H, Albumin/Globulin Ratio 0.5 L 08/22/18 05:45: Lactate 2.4 H 08/22/18 05:45: WBC 55.8 H*, RBC 4.32, Hgb 13.5 D, Hct 42.7, MCV 98.8, MCH 31.1, MCHC 31.5 L, RDW 16.1, Plt Count 354, MPV 8.7, Neut % (Auto) 91.9 H, Lymph % (Auto) 2.1 L, [place] % (Auto) 5.5, Eos % (Auto) 0.1, Baso % (Auto) 0.4, Neut # (Auto) 51.3 H, Lymph # (Auto) 1.2, [place] # (Auto) 3.1 H, Eos # (Auto) 0.0, Baso # (Auto) 0.2, Total Counted 100, Neutrophils % (Manual) 73, Band Neutrophils % 19.0 H, Lymphocytes % (Manual) 2 L, Monocytes % (Manual) 4, Metamyelocytes % 1.0, Myelocytes % 1, Platelet Estimate Normal, RBC Morphology Not Reportable 08/22/18 05:45: Magnesium 2.7 H 08/22/18 06:23: Specimen Source R brachial, O2 % 55%, ABG pH 7.30 L, ABG pCO2 54.2 H, ABG pO2 67.2 L, ABG HCO3 25.9, ABG Total CO2 27.6 H, ABG O2 Saturation 92, ABG Base Excess -0.6 08/22/18 10:20: Sodium 149 H, Potassium 4.0, Chloride 111 H, Carbon Dioxide 28, Anion Gap 14.0, BUN 52 H, Creatinine 0.88, Estimated Creat Clear 43, Estimated GFR 64, Est GFR ( Amer) 78, Glucose 166 H D, Calcium 7.6 L 08/22/18 10:20: B-Natriuretic Peptide 748 H 08/22/18 10:20: Lactate 1.5 08/22/18 10:20: WBC 54.7 H*, RBC 3.92 L, Hgb 12.3, Hct 38.8, MCV 98.9, MCH 31.4 H, MCHC 31.8, RDW 16.2, Plt Count 346, MPV 8.7, Neut % (Auto) 94.2 H, Lymph % (Auto) 2.2 L, [place] % (Auto) 3.2, Eos % (Auto) 0.0 L, Baso % (Auto) 0.4, Neut # (Auto) 51.5 H, Lymph # (Auto) 1.2, [place] # (Auto) 1.7 H, Eos # (Auto) 0.0, Baso # (Auto) 0.2 I & O for Last 24 hours: Intake & Output 08/20/18 08/21/18 08/22/18 08/23/18 11:59 11:59 11:59 11:59 Intake Total 1473 / 1473 0 / 0 Output Total 510 / 510 Balance 963 / 963 0 / 0 Weight 100 lb 108 lb 2 oz Microbiology Reports for the Last 24 Hours: Microbiology 08/21/18 11:09 Urine,Clean Catch Urine Culture - Preliminary NO GROWTH AFTER 24 HOURS 08/22/18 09:43 Sputum - Expectorated Sputum Gram Stain - Final Assessment and Plan (1) Respiratory failure with hypercapnia Current visit: Yes Status: Acute Category: Medical Code(s): J96.92 - Respiratory failure, unspecified with hypercapnia (2) LLL pneumonia Current visit: Yes Status: Acute Category: Medical Code(s): J18.1 - Lobar pneumonia, unspecified organism (3) Abdominal pain Current visit: Yes Status: Acute Category: Medical Code(s): R10.9 - Unspecified abdominal pain (4) COPD exacerbation Current visit: Yes Status: Acute Category: Medical Code(s): J44.1 - Chronic obstructive pulmonary disease with (acute) exacerbation (5) Leukemoid reaction Current visit: Yes Status: Acute Category: Medical Code(s): D72.823 - Leukemoid reaction (6) Tobacco use disorder Current visit: Yes Status: Chronic Category: Medical Code(s): F17.200 - Nicotine dependence, unspecified, uncomplicated (7) Altered mental status Current visit: Yes Status: Acute Category: Medical Code(s): R41.82 - Altered mental status, unspecified (8) Tachycardia with heart rate 121-140 beats per minute Current visit: Yes Status: Acute Category: Medical Code(s): R00.0 - Tachycardia, unspecified - Assessment and plan all Dx Assessment and Plan for all problems:: Patient seen and examined. Concur with current plan. Will check echo also due to elevated BNP. Will reassess after echo and CT.
[2018-08-22 08:54] LABS: Lymphocytes % 2 % (10-50); Monocytes % 4 % (2-9); Myelocytes % 1 (0-1); Neutrophils % 73 % (42-76); Total Cells Counted 100
--- NOTE | 2018-08-22 09:38 | Consult Report ---
History of Present Illness Consult date: 08/22/18 Requesting physician: Kevin Cline Chief complaint: Tachycardia Additional Medical History:: 1. Continue tobacco use 2. 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 Pneumonia, 08/2018, with white count of 66,000 on admission 4. Tachycardia likely secondary to respiratory issues, 08/2018 A. Echocardiogram, 08/2018, preliminary shows normal to hyperdynamic function with minimal valvular heart disease. History of present illness: From the ER note:Ms Schilling is a 68 year old white female with a history of COPD oxygen dependent who continues to smoke. The patient reports that she has been short of breath for the past week with cough, chest congestion and progressively getting short of breath. Today her son contacted the EMS. Upon arrival her oxygen saturation was in the 70's on 3 L/min per [place]. The EMS staff increase her oxygen to 6 L with improvement of her oxygenation to 90% and she was brought to the ED. On arrival to the ED the patient was in moderate respiratory distress, tachypnea, speaking short sentences and using abdominal muscle for respiration. Her blood pressure was 163/108 mmHg and heart rate 77/minute. The patient was placed on nonrebreather, ordered neb treatment, blood gases, BiPAP 11/04 with 100% oxygen and stat chest x-ray. History also obtained from son.He noticed that she was not feeling well on 08/18/18 with weakness, cough and some confusion. With evaluation in the ER CXR revealed pneumonia with a possible underlying mass; WBC was 66,000 and K+ 2.6. ABG's revealed a respiratory acidosis with PO2 76. She was started on Zithromax and Rocephin and given duoneb< PO K+ and IV fluid bolus. At time of initial exam after arrival to Med/surg unit patient was in acute respiratory distress on BIPAP. She did try to answer questions but was difficult to understand. She was SOB and indicated abdominal pain. The above per Daniella Rivers APRN for Dr. Cline Cardiology consulted for evaluation of tachycardia and other recommendations. Patient currently on BiPAP therapy with minimal responsiveness. She did have a central venous IV line placed this a.m. due to poor IV access peripherally. Telemetry shows sinus tachycardia in the 130s. Patient unable to answer verbally but nods to complain of pain in the abdominal and chest areas. [facility] [place] History Medical History: Reports:: Chronic Obstructive Pulmonary Disease (COPD), Depression Denies:: Cancer, Diabetes Mellitus Type 1, Diabetes Mellitus Type 2, Internal Pacemaker, MRSA *Have you ever received a pneumonia vaccine?: No *Have you received a flu vaccine this season?: No Other Surgeries: No: Pacemaker Amputation: No Fractures: No - *Social History Educational Level: Completed GED/General Educational Development Smoking Status: Current every day smoker Tobacco Type: cigarettes # Packs/Day (cigarettes): 1 Alcohol Intake: current Alcohol Intake Frequency:: holidays/special occasions only Substance Use Type: marijuana Last Used Substance: unknown *Occupational Status:: retired Housing: house Household Members: family *Travel in the last 8 weeks: None - Psychiatric History Expresses thoughts of harming self/others: None Suicide Plan Description: No Plan Pschychiatric History:: Reports:: Depression Family Hx:: Unable to obtain Meds Home Medications Medication Instructions Recorded Confirmed Type Albuterol Sulfate [Albuterol 2.5 mg IH Q4HP PRN 08/21/18 08/21/18 History 0.083% 2.5mg/3mL neb] Clotrimazole/Betamethasone Dip 1 applicatio TOPICAL DAILY PRN 08/21/18 08/22/18 History [Lotrisone cream 15gm tube] Cyclobenzaprine HCl 10 mg PO TIDP PRN 08/21/18 08/22/18 History [Cyclobenzaprine 10mg Tab] Diclofenac Sodium [Diclofenac Sod 1 applicatio TP DAILYP PRN 08/21/18 08/22/18 History 100gm Topical Gel] Fluticasone/Umeclidin/Vilanter 2 puffs INHALATION DAILY 08/21/18 08/21/18 History [Trelegy Ellipta 100-62.5-25] Linaclotide [Linzess] 145 mcg PO DAILY 08/21/18 08/21/18 History Pantoprazole Sodium [Protonix 40mg 40 mg PO DAILY 08/21/18 08/21/18 History tablet] Sertraline HCl [Zoloft 100mg 100 mg PO DAILY 08/21/18 08/21/18 History tablet] Valacyclovir HCl [Valacyclovir] 1 gm PO DAILY 08/21/18 08/21/18 History Allergies Allergy/AdvReac Type Severity Reaction Status Date / Time Sulfa (Sulfonamide AdvReac Mild NA-NAUSEA Verified 08/21/18 09:47 Antibiotics) Review of Systems - Review of Systems Review of systems:: unable to obtain - *Neurologic Reports abnormal walking, Reports behavioral changes, Reports weakness, Denies headache(s) Exam Vital signs and Labs for Last 24 Hours: Temp Pulse Resp BP Pulse Ox 99.9 F H 130 H 35 H 125/57 L 99 08/22/18 08:00 08/22/18 08:27 08/22/18 08:00 08/22/18 08:00 08/22/18 08:00 Laboratory Results - last 24 hr 08/21/18 09:26: Specimen Source Right radial, O2 % 100, ABG pH 7.32 L, ABG pCO2 58.3 H, ABG pO2 76.0 L, ABG HCO3 29.5 H, ABG Total CO2 31.3 H, ABG O2 Saturation 94, ABG Base Excess 3.4 H, José Miguel Test Acceptable 08/21/18 10:00: WBC 66.8 H*, RBC 4.98, Hgb 15.7, Hct 48.3 H, MCV 97.2, MCH 31.5 H, MCHC 32.4, RDW 15.8, Plt Count 451 H, MPV 8.6, Neut % (Auto) 93.7 H, Lymph % (Auto) 0.8 L, [place] % (Auto) 4.5, Eos % (Auto) 0.1, Baso % (Auto) 1.0, Neut # (Auto) 62.6 H, Lymph # (Auto) 0.5 L, [place] # (Auto) 3.0 H, Eos # (Auto) 0.0, Baso # (Auto) 0.7 H, Total Counted 100, Neutrophils % (Manual) 81 H, Band Neutrophils % 14.0 H, Lymphocytes % (Manual) 5 L, Platelet Estimate Slight incre ase, RBC Morphology Normal 08/21/18 10:00: Sodium 138, Potassium 2.6 L*, Chloride 96 L, Carbon Dioxide 31, Anion Gap 13.6, BUN 56 H, Creatinine 1.18 H, Estimated Creat Clear 34, Estimated GFR 46 L, Est GFR ( Amer) 55 L, Glucose 197 H, Calcium 9.0, Total Bilirubin 1.9 H, AST 43 H, ALT 27, Alkaline Phosphatase 199 H, Troponin I < 0.02, Total Protein 7.4, Albumin 1.9 L, Globulin 5.5 H, Albumin/Globulin Ratio 0.3 L 08/21/18 10:00: Lactate 4.3 H 08/21/18 10:00: B-Natriuretic Peptide 1190 H 08/21/18 11:09: Urine Color Lucy, Urine Appearance Sl cloudy, Urine pH 5.5, Ur Specific [place] 1.025, Urine Protein 1+, Urine Glucose (UA) Negative, Urine Ketones Negative, Urine Blood 1+, Urine Nitrate Negative, Urine Bilirubin Negative, Urine Urobilinogen >=8.0, Ur Leukocyte Esterase Negative, Urine WBC 10-20, Ur Squamous Epith Cells Occasional, Ur Transition Epith Cell 3-5, Amorphous Sediment 3+, Urine Bacteria 2+ 08/21/18 13:00: Specimen Source Right radial, O2 % 50, ABG pH 7.22 L*, ABG pCO2 66.4 H, ABG pO2 66.6 L, ABG HCO3 26.7 H, ABG Total CO2 28.7 H, ABG O2 Saturation 89 L, ABG Base Excess -1.0, José Miguel Test Acceptable, Vent Rate 14, Tidal Volume Bipap 14/1008/21/18 14:30: Lactate 2.8 H 08/21/18 15:25: Specimen Source Right radial, O2 % 55, ABG pH 7.26 L, ABG pCO2 57.9 H, ABG pO2 109.6 H, ABG HCO3 25.5, ABG Total CO2 27.2 H, ABG O2 Saturation 98, ABG Base Excess -1.6, José Miguel Test Acceptable, Vent Rate 14, Tidal Volume Bipap 14/0108/21/18 17:12: Lactate 2.3 H 08/21/18 19:24: Sodium 143, Potassium 3.6 D, Chloride 104, Carbon Dioxide 26, Anion Gap 16.6 H, BUN 53 H, Creatinine 1.01, Estimated Creat Clear 42, Estimated GFR 55 L, Est GFR ( Amer) 66, Glucose 144 H D, Calcium 8.2 L 08/21/18 20:08: Urine Opiates Screen Negative, Urine Methadone Screen Negative, Ur Barbituates Screen Negative, Ur Phencyclidine Scrn Negative, Ur Amphetamines Screen Negative, U Benzodiazepines Scrn Negative, Urine Cocaine Screen Negative, U Marijuana (THC) Screen Positive H 08/22/18 05:45: Sodium 149 H, Potassium 4.7 D, Chloride 110 H, Carbon Dioxide 25, Anion Gap 18.7 H, BUN 50 H, Creatinine 0.78 D, Estimated Creat Clear 43, Estimated GFR 74, Est GFR ( Amer) 89 D, Glucose 136 H, Calcium 7.2 L D, Total Bilirubin 1.5 H, AST 43 H, ALT 23, Alkaline Phosphatase 169 H, Total Protein 4.8 L D, Albumin 1.5 L D, Globulin 3.3 H, Albumin/Globulin Ratio 0.5 L 08/22/18 05:45: Lactate 2.4 H 08/22/18 05:45: WBC 55.8 H*, RBC 4.32, Hgb 13.5 D, Hct 42.7, MCV 98.8, MCH 31.1, MCHC 31.5 L, RDW 16.1, Plt Count 354, MPV 8.7, Neut % (Auto) 91.9 H, Lymph % (Auto) 2.1 L, [place] % (Auto) 5.5, Eos % (Auto) 0.1, Baso % (Auto) 0.4, Neut # (Auto) 51.3 H, Lymph # (Auto) 1.2, [place] # (Auto) 3.1 H, Eos # (Auto) 0.0, Baso # (Auto) 0.2, Total Counted 100, Neutrophils % (Manual) 73, Band Neutrophils % 19.0 H, Lymphocytes % (Manual) 2 L, Monocytes % (Manual) 4, Metamyelocytes % 1.0, Myelocytes % 1, Platelet Estimate Normal, RBC Morphology Not Reportable 08/22/18 05:45: Magnesium 2.7 H 08/22/18 06:23: Specimen Source R brachial, O2 % 55%, ABG pH 7.30 L, ABG pCO2 54.2 H, ABG pO2 67.2 L, ABG HCO3 25.9, ABG Total CO2 27.6 H, ABG O2 Saturation 92, ABG Base Excess -0.6 I & O for Last 24 hours: Intake & Output 08/19/18 08/20/18 08/21/18 05/22/19 11:59 11:59 11:59 11:59 Intake Total 1433 / 1433 Output Total 510 / 510 Balance 923 / 923 Weight 100 lb 108 lb 2 oz - *Routine HEENT Exam Head: Present: normocephalic - *Routine Neck Exam Absent: JVD, carotid bruit - *Routine Respiratory Exam Present: rhonchi. Absent: accessory muscle use, rales, wheezes - *Routine Cardiovascular Exam Present: tachycardia. Absent: murmur, gallop, rubs - *Routine Abdominal Exam Present: tenderness. Absent: distended, guarding - *Routine Extremities Exam Absent: edema, calf tenderness - *Routine Neurological Exam Present: alert Assessment and Plan (1) Respiratory failure with hypercapnia Current visit: Yes Status: Acute Category: Medical Code(s): J96.92 - Respiratory failure, unspecified with hypercapnia (2) LLL pneumonia Current visit: Yes Status: Acute Category: Medical Code(s): J18.1 - Lobar pneumonia, unspecified organism (3) Abdominal pain Current visit: Yes Status: Acute Category: Medical Code(s): R10.9 - Unspecified abdominal pain (4) COPD exacerbation Current visit: Yes Status: Acute Category: Medical Code(s): J44.1 - Chronic obstructive pulmonary disease with (acute) exacerbation (5) Leukemoid reaction Current visit: Yes Status: Acute Category: Medical Code(s): D72.823 - Leukemoid reaction (6) Tobacco use disorder Current visit: Yes Status: Chronic Category: Medical Code(s): F17.200 - Nicotine dependence, unspecified, uncomplicated (7) Altered mental status Current visit: Yes Status: Acute Category: Medical Code(s): R41.82 - Altered mental status, unspecified (8) Tachycardia with heart rate 121-140 beats per minute Current visit: Yes Status: Acute Category: Medical Code(s): R00.0 - Tachycardia, unspecified - Assessment and plan all Dx Assessment and Plan for all problems:: 1. Tachycardia felt secondary to respiratory distress and dehydration. Echocardiogram shows normal hyperdynamic left ventricular ejection fraction with no significant wall motion abnormalities or valvular disease. Patient is receiving 2 different antibiotics and undergoing work-up for presumed metastatic cancer. Rate control will be difficult but could be achieved with combination of beta-fabricio, calcium channel fabricio and/or digoxin therapy, however, heart rate will improve once respiratory issues have improved. Will also give additional IVF bolus due to hypernatremia and elevated BUN. 2. Will follow with you.
--- NOTE | 2018-08-22 09:47 | Procedure Note ---
[facility] Procedure Note Procedure Note:: Procedure: Left internal jugular triple-lumen catheter Indications: Inadequate venous access/leukocytosis/respiratory failure Preparation: Chlorhexidine Description: After informed consent was obtained the patient was maintained in a supine position. Her left neck and chest were prepped and draped in a sterile fashion. After infiltration with local anesthetic the large-bore needle was utilized to access the left internal jugular vein. This was quite difficult secondary to patient movement. The internal jugular vein was accessed and a guidewire was placed in position. The dilator was then placed over the guidewire after a small skin incision was made. The triple-lumen catheter was then placed over the guidewire after the dilator was removed. The catheter was secured at 16 cm. All 3 ports flushed without difficulty. A sterile dressing was applied. Chest x-ray pending. Estimated blood loss: 5 mL Complications: No immediate
[2018-08-22 10:30] LABS: Basophils # 0.2 K/mm3 (0-0.2); Basophils % 0.4 % (0.1-2.0); Hematocrit 38.8 % (37.0-47.0); Hemoglobin 12.3 g/dL (12.2-16.2); Lymphocytes # 1.2 K/mm3 (0.7-4.5); Lymphocytes % 2.2 % (10-50); Mean Corpuscular HGB Conc 31.8 g/dL (31.8-35.4); Mean Corpuscular Hemoglobin 31.4 pg (27.0-31.2); Mean Corpuscular Volume 98.9 fl (81-99); Mean Platelet Volume 8.7 fl (7.4-10.4); Monocytes # 1.7 K/mm3 (0.1-1.0); Monocytes % 3.2 % (1.7-9.3); Neutrophils # 51.5 K/mm3 (1.8-7.8); Neutrophils % 94.2 % (37.0-80.0); Platelet Count 346 K/mm3 (142-424); Red Blood Count 3.92 M/mm3 (4.20-5.40); Red Cell Distribution Width 16.2 % (11.5-17.5)
[2018-08-22 10:31] LABS: White Blood Count 54.7 K/mm3 (4.8-10.8)
[2018-08-22 10:40] LABS: Calcium 7.6 mg/dL (8.5-10.1)
--- NOTE | 2018-08-22 14:33 | Progress Note ---
Internal Medicine - PN: Angel *Date: 08/22/18 *Time: 14:29 Interval history: Reasssessd patient. She is less responsive. RR increased. Exam Vital signs and Labs for Last 24 Hours: Temp Pulse Resp BP Pulse Ox 99.9 F H 119 H 42 H 93/73 L 97 08/22/18 08:00 08/22/18 14:06 08/22/18 14:06 08/22/18 12:00 08/22/18 14:06 Laboratory Results - last 24 hr 08/21/18 14:30: Lactate 2.8 H 08/21/18 15:25: Specimen Source Right radial, O2 % 55, ABG pH 7.26 L, ABG pCO2 57.9 H, ABG pO2 109.6 H, ABG HCO3 25.5, ABG Total CO2 27.2 H, ABG O2 Saturation 98, ABG Base Excess -1.6, José Miguel Test Acceptable, Vent Rate 14, Tidal Volume Bipap 14/0108/21/18 17:12: Lactate 2.3 H 08/21/18 19:24: Sodium 143, Potassium 3.6 D, Chloride 104, Carbon Dioxide 26, Anion Gap 16.6 H, BUN 53 H, Creatinine 1.01, Estimated Creat Clear 42, Estimated GFR 55 L, Est GFR ( Amer) 66, Glucose 144 H D, Calcium 8.2 L 08/21/18 20:08: Urine Opiates Screen Negative, Urine Methadone Screen Negative, Ur Barbituates Screen Negative, Ur Phencyclidine Scrn Negative, Ur Amphetamines Screen Negative, U Benzodiazepines Scrn Negative, Urine Cocaine Screen Negative, U Marijuana (THC) Screen Positive H 08/22/18 05:45: Sodium 149 H, Potassium 4.7 D, Chloride 110 H, Carbon Dioxide 25, Anion Gap 18.7 H, BUN 50 H, Creatinine 0.78 D, Estimated Creat Clear 43, Estimated GFR 74, Est GFR ( Amer) 89 D, Glucose 136 H, Calcium 7.2 L D, Total Bilirubin 1.5 H, AST 43 H, ALT 23, Alkaline Phosphatase 169 H, Total Protein 4.8 L D, Albumin 1.5 L D, Globulin 3.3 H, Albumin/Globulin Ratio 0.5 L 08/22/18 05:45: Lactate 2.4 H 08/22/18 05:45: WBC 55.8 H*, RBC 4.32, Hgb 13.5 D, Hct 42.7, MCV 98.8, MCH 31.1, MCHC 31.5 L, RDW 16.1, Plt Count 354, MPV 8.7, Neut % (Auto) 91.9 H, Lymph % (Auto) 2.1 L, [place] % (Auto) 5.5, Eos % (Auto) 0.1, Baso % (Auto) 0.4, Neut # (Auto) 51.3 H, Lymph # (Auto) 1.2, [place] # (Auto) 3.1 H, Eos # (Auto) 0.0, Baso # (Auto) 0.2, Total Counted 100, Neutrophils % (Manual) 73, Band Neutrophils % 19.0 H, Lymphocytes % (Manual) 2 L, Monocytes % (Manual) 4, Metamyelocytes % 1.0, Myelocytes % 1, Platelet Estimate Normal, RBC Morphology Not Reportable 08/22/18 05:45: Magnesium 2.7 H 08/22/18 06:23: Specimen Source R brachial, O2 % 55%, ABG pH 7.30 L, ABG pCO2 54.2 H, ABG pO2 67.2 L, ABG HCO3 25.9, ABG Total CO2 27.6 H, ABG O2 Saturation 92, ABG Base Excess -0.6 08/22/18 10:20: Sodium 149 H, Potassium 4.0, Chloride 111 H, Carbon Dioxide 28, Anion Gap 14.0, BUN 52 H, Creatinine 0.88, Estimated Creat Clear 43, Estimated GFR 64, Est GFR ( Amer) 78, Glucose 166 H D, Calcium 7.6 L 08/22/18 10:20: B-Natriuretic Peptide 748 H 08/22/18 10:20: Lactate 1.5 08/22/18 10:20: WBC 54.7 H*, RBC 3.92 L, Hgb 12.3, Hct 38.8, MCV 98.9, MCH 31.4 H, MCHC 31.8, RDW 16.2, Plt Count 346, MPV 8.7, Neut % (Auto) 94.2 H, Lymph % (Auto) 2.2 L, [place] % (Auto) 3.2, Eos % (Auto) 0.0 L, Baso % (Auto) 0.4, Neut # (Auto) 51.5 H, Lymph # (Auto) 1.2, [place] # (Auto) 1.7 H, Eos # (Auto) 0.0, Baso # (Auto) 0.2 I & O for Last 24 hours: Intake & Output 08/20/18 08/21/18 08/22/18 08/23/18 11:59 11:59 11:59 11:59 Intake Total 1473 / 1473 0 / 0 Output Total 510 / 510 Balance 963 / 963 0 / 0 Weight 100 lb 108 lb 2 oz Microbiology Reports for the Last 24 Hours: Microbiology 08/21/18 11:09 Urine,Clean Catch Urine Culture - Preliminary NO GROWTH AFTER 24 HOURS 08/22/18 09:43 Sputum - Expectorated Sputum Gram Stain - Final Assessment and Plan (1) Respiratory failure with hypercapnia Current visit: Yes Status: Acute Category: Medical Code(s): J96.92 - Respiratory failure, unspecified with hypercapnia (2) LLL pneumonia Current visit: Yes Status: Acute Category: Medical Code(s): J18.1 - Lobar pneumonia, unspecified organism (3) Abdominal pain Current visit: Yes Status: Acute Category: Medical Code(s): R10.9 - Unspecified abdominal pain (4) COPD exacerbation Current visit: Yes Status: Acute Category: Medical Code(s): J44.1 - Chronic obstructive pulmonary disease with (acute) exacerbation (5) Leukemoid reaction Current visit: Yes Status: Acute Category: Medical Code(s): D72.823 - Leukemoid reaction (6) Tobacco use disorder Current visit: Yes Status: Chronic Category: Medical Code(s): F17.200 - Nicotine dependence, unspecified, uncomplicated (7) Altered mental status Current visit: Yes Status: Acute Category: Medical Code(s): R41.82 - Altered mental status, unspecified (8) Tachycardia with heart rate 121-140 beats per minute Current visit: Yes Status: Acute Category: Medical Code(s): R00.0 - Tachycardia, unspecified - Assessment and plan all Dx Assessment and Plan for all problems:: Contacted Dr. Calvo, with pulmonology service at regarding transfer. They have no beds available at present. He advised intubation and mechanical ventilation and agreed to accept the patient when bed available.
--- NOTE | 2018-08-22 15:11 | Progress Note ---
[facility] Anesthesia Checklist - Patient Identification Patient Identification: Arm Band - Structural Data Admitted From: Inpatient Planned Operative Procedure/s: emergent intubation Consent for Planned Operative Procedure(s) Verified: Yes Verified Documents: Surgical Consent, History and Physical - Airway Assessment Dentition: Poor Dentition - Neurological Assessment Level of Consciousness: Awake - Anesthesia Plan ASA Class: III (e) Anesthesia Type: None (Intubation) - Preoperative Comments Pre-Operative Comments: Consulted for intubation d/t respiratory distress/pneumonia. See intubation details on paper anesthesia record. [facility] History I have reviewed the patient's past medical history: Yes Medical History: Reports:: Chronic Obstructive Pulmonary Disease (COPD), Depression Denies:: Cancer, Diabetes Mellitus Type 1, Diabetes Mellitus Type 2, Internal Pacemaker, MRSA *Have you ever received a pneumonia vaccine?: No *Have you received a flu vaccine this season?: No Other Surgeries: No: Pacemaker Amputation: No Fractures: No - *Social History Educational Level: Completed GED/General Educational Development Smoking Status: Current every day smoker Tobacco Type: cigarettes # Packs/Day (cigarettes): 1 Alcohol Intake: current Alcohol Intake Frequency:: holidays/special occasions only Substance Use Type: marijuana Last Used Substance: unknown *Occupational Status:: retired Housing: house Household Members: family *Travel in the last 8 weeks: None - Psychiatric History Expresses thoughts of harming self/others: None Suicide Plan Description: No Plan Pschychiatric History:: Reports:: Depression Family Hx:: Unable to obtain
[2018-08-22 16:32] LABS: ABG Base Excess -3.5 mmol/L (-2.4-2.3); ABG HCO3 22.6 mmhg (22.0-26.0); ABG Oxygen Saturation 97 % (90-100); ABG PCO2 44.9 mmhg (35.0-45.0); ABG PH 7.32 mmol/L (7.35-7.45); ABG PO2 91.9 mmhg (80-100)
[2018-08-22 16:33] LABS: Allen's Test Acceptable; Oxygen 50 %; PEEP 5; Tidal Volume 450
--- NOTE | 2018-08-23 08:20 | Discharge Summary ---
General - General Admission date:: 08/21/18 Discharge date: 08/22/18 HPI HPI: From the ER note:Ms Schilling is a 68 year old white female with a history of COPD oxygen dependent who continued to smoke. The patient reported that she had been short of breath for the past week with cough, chest congestion and progressively getting more short of breath. Her son contacted the EMS. Upon arrival her oxygen saturation was in the 70's on 3 L/min per [place]. The EMS staff increase her oxygen to 6 L with improvement of her oxygenation to 90% and she was brought to the ED. On arrival to the ED the patient was in moderate respiratory distress, tachypnea, speaking short sentences and using abdominal muscle for respiration. Her blood pressure was 163/108 mmHg and heart rate 77/minute. The patient was placed on nonrebreather, ordered neb treatment, blood gases, BiPAP 11/04 with 100% oxygen and stat chest x-ray. History also obtained from son.He noticed that she was not feeling well on 08/18/18 with weakness, cough and some confusion. With evaluation in the ER CXR revealed pneumonia with a possible underlying mass; WBC was 66,000 and K+ 2.6. ABG's revealed a respiratory acidosis with PO2 76. She was started on Zithromax and Rocephin and given duoneb, PO K+ and IV fluid bolus. At time of initial exam after arrival to Med/surg unit patient was in acute respiratory distress on BIPAP. She did try to answer questions but was difficult to understand. She was SOB and indicated abdominal pain. Hospital Course Hospital Course: On admission patient was started on antibiotics, Rocephin and Zithromax, and continued with IV fluids. Potassium was low and she received supplemental IV. She did have an adequate urinary output with normal renal function. CT of the chest showed a left pneumonia with possible underlying mass and CT of the abdomen showed an adrenal mass. She continued with BiPAP with oxygen titration according to her O2 sats. She did remain acidotic but this did improve. She continued to be poorly responsive and restless at times. The following morning after admission oh pH was 7.3 with a low PO2 in the 60s on BiPAP at 55%. Respiratory rate was in the 40s with a heart rate of 120. She received a dose of metoprolol. Blood cell count on admission was greater than 66,000 and decreased the following a.m. to 55,000. Deep line was placed per Dr. Jalloh. Patient did have a stable small pneumothorax after this. 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 With ongoing tachycardia echocardiogram was performed and cardiology was consulted with the following impression: 1. Tachycardia felt secondary to respiratory distress and dehydration. Echocardiogram shows normal hyperdynamic left ventricular ejection fraction with no significant wall motion abnormalities or valvular disease. Patient is receiving 2 different antibiotics and undergoing work-up for presumed metastatic cancer. Rate control will be difficult but could be achieved with combination of beta-fabricio, calcium channel fabricio and/or digoxin therapy, however, heart rate will improve once respiratory issues have improved. Will also give additional IVF bolus due to hypernatremia and elevated BUN. 2. Will follow with you. With reassessment in the p.m. 08/22/2018 patient had deteriorated with less response and increasing respiratory rate. Dr. Cline contacted Dr. Calvo with pulmonary services at who accepted the patient when bed available. Patient was intubated and placed on mechanical ventilation. A bed then became available at and patient was transferred via helicopter at approximately 5:30 PM. Condition at transfer was critical but stable. To note, patient was a poor historian. Her son Armando was present during her stay and was unable to present much of her medical background. He did remember her being hospitalized with a severe pneumonia at in 2016. He did eventually recall her physician's name and records were in the process of being obtained from this physician as well as from . Objective Vital signs: Temp Pulse Resp BP Pulse Ox 98.8 F 124 H 18 110/69 100 08/22/18 14:40 08/22/18 17:35 08/22/18 17:35 08/22/18 17:35 08/22/18 17:35 Narrative: Exam Vital signs and Labs for Last 24 Hours: Temp Pulse Resp BP Pulse Ox 99.3 F 123 H 32 H 130/68 99 08/21/18 20:00 08/22/18 05:59 08/22/18 04:03 08/22/18 05:59 08/22/18 05:59 Laboratory Results - last 24 hr 08/21/18 09:26: Specimen Source Right radial, O2 % 100, ABG pH 7.32 L, ABG pCO2 58.3 H, ABG pO2 76.0 L, ABG HCO3 29.5 H, ABG Total CO2 31.3 H, ABG O2 Saturation 94, ABG Base Excess 3.4 H, José Miguel Test Acceptable 08/21/18 10:00: WBC 66.8 H*, RBC 4.98, Hgb 15.7, Hct 48.3 H, MCV 97.2, MCH 31.5 H, MCHC 32.4, RDW 15.8, Plt Count 451 H, MPV 8.6, Neut % (Auto) 93.7 H, Lymph % (Auto) 0.8 L, [place] % (Auto) 4.5, Eos % (Auto) 0.1, Baso % (Auto) 1.0, Neut # (Auto) 62.6 H, Lymph # (Auto) 0.5 L, [place] # (Auto) 3.0 H, Eos # (Auto) 0.0, Baso # (Auto) 0.7 H, Total Counted 100, Neutrophils % (Manual) 81 H, Band Neutrophils % 14.0 H, Lymphocytes % (Manual) 5 L, Platelet Estimate Slight increase, RBC Morphology Normal 08/21/18 10:00: Sodium 138, Potassium 2.6 L*, Chloride 96 L, Carbon Dioxide 31, Anion Gap 13.6, BUN 56 H, Creatinine 1.18 H, Estimated Creat Clear 34, Estimated GFR 46 L, Est GFR ( Amer) 55 L, Glucose 197 H, Calcium 9.0, Total Bilirubin 1.9 H, AST 43 H, ALT 27, Alkaline Phosphatase 199 H, Troponin I < 0.02, Total Protein 7.4, Albumin 1.9 L, Globulin 5.5 H, Albumin/Globulin Ratio 0.3 L 08/21/18 10:00: Lactate 4.3 H 08/21/18 10:00: B-Natriuretic Peptide 1190 H 08/21/18 11:09: Urine Color Lucy, Urine Appearance Sl cloudy, Urine pH 5.5, Ur Specific [place] 1.025, Urine Protein 1+, Urine Glucose (UA) Negative, Urine Ketones Negative, Urine Blood 1+, Urine Nitrate Negative, Urine Bilirubin Negative, Urine Urobilinogen >=8.0, Ur Leukocyte Esterase Negative, Urine WBC 10-20, Ur Squamous Epith Cells Occasional, Ur Transition Epith Cell 3-5, Amorphous Sediment 3+, Urine Bacteria 2+ 08/21/18 13:00: Specimen Source Right radial, O2 % 50, ABG pH 7.22 L*, ABG pCO2 66.4 H, ABG pO2 66.6 L, ABG HCO3 26.7 H, ABG Total CO2 28.7 H, ABG O2 Saturation 89 L, ABG Base Excess -1.0, José Miguel Test Acceptable, Vent Rate 14, Tidal Volume Bipap 14/1008/21/18 14:30: Lactate 2.8 H 08/21/18 15:25: Specimen Source Right radial, O2 % 55, ABG pH 7.26 L, ABG pCO2 57.9 H, ABG pO2 109.6 H, ABG HCO3 25.5, ABG Total CO2 27.2 H, ABG O2 Saturation 98, ABG Base Excess -1.6, José Miguel Test Acceptable, Vent Rate 14, Tidal Volume Bipap 14/0108/21/18 17:12: Lactate 2.3 H 08/21/18 19:24: Sodium 143, Potassium 3.6 D, Chloride 104, Carbon Dioxide 26, Anion Gap 16.6 H, BUN 53 H, Creatinine 1.01, Estimated Creat Clear 42, Estimated GFR 55 L, Est GFR ( Amer) 66, Glucose 144 H D, Calcium 8.2 L 08/21/18 20:08: Urine Opiates Screen Negative, Urine Methadone Screen Negative, Ur Barbituates Screen Negative, Ur Phencyclidine Scrn Negative, Ur Amphetamines Screen Negative, U Benzodiazepines Scrn Negative, Urine Cocaine Screen Negative, U Marijuana (THC) Screen Positive H 08/22/18 05:45: Sodium 149 H, Potassium 4.7 D, Chloride 110 H, Carbon Dioxide 25, Anion Gap 18.7 H, BUN 50 H, Creatinine 0.78 D, Estimated Creat Clear 43, Estimated GFR 74, Est GFR ( Amer) 89 D, Glucose 136 H, Calcium 7.2 L D, Total Bilirubin 1.5 H, AST 43 H, ALT 23, Alkaline Phosphatase 169 H, Total Protein 4.8 L D, Albumin 1.5 L D, Globulin 3.3 H, Albumin/Globulin Ratio 0.5 L 08/22/18 05:45: Lactate 2.4 H 08/22/18 05:45: WBC 55.8 H*, RBC 4.32, Hgb 13.5 D, Hct 42.7, MCV 98.8, MCH 31.1, MCHC 31.5 L, RDW 16.1, Plt Count 354, MPV 8.7, Neut % (Auto) 91.9 H, Lymph % (Auto) 2.1 L, [place] % (Auto) 5.5, Eos % (Auto) 0.1, Baso % (Auto) 0.4, Neut # (Auto) 51.3 H, Lymph # (Auto) 1.2, [place] # (Auto) 3.1 H, Eos # (Auto) 0.0, Baso # (Auto) 0.2 08/22/18 05:45: Magnesium 2.7 H 08/22/18 06:23: Specimen Source R brachial, O2 % 55%, ABG pH 7.30 L, ABG pCO2 54.2 H, ABG pO2 67.2 L, ABG HCO3 25.9, ABG Total CO2 27.6 H, ABG O2 Saturation 92, ABG Base Excess -0.6 I & O for Last 24 hours: Intake & Output 08/19/18 08/20/18 08/21/18 08/22/18 11:59 11:59 11:59 11:59 Intake Total 1433 / 1433 Output Total 510 / 510 Balance 923 / 923 Weight 100 lb 108 lb 2 oz Constitutional severe distress, cachectic, chronically ill appearing, somnolent Comments: Some restless activity - *Routine HEENT Exam Eye: Absent: PERRL (Pupils are pinpoint bilaterally) ENT: Absent: mucous membranes dry Comments: Bilateral eyes remain open most of the time. - *Routine Respiratory Exam Comments: Bilateral coarsE crackles throughout anteriorly and posteriorly - *Routine Cardiovascular Exam Present: RRR Comments: Sinus tachycardia on monitor - *Routine Abdominal Exam Present: soft. Absent: distended Comments: Indicates abdomen is poultry tender to palpation. No hepatosplenomegaly or palpable masses - *Routine Extremities Exam Present: pallor Comments: Moves all extremities. extremities are cool to touch. Continues with some mottling of the knees fingers and toes. - *Routine Skin Exam Present: dry, pallor, mottling - *Routine Neurological Exam Present: altered mental status, moving all extremities Occasional focus on verbal stimulus. Does indicate that she hurts but cannot indicate where. Results Completed studies during hospitalization [Text1]: 08/21/2018 CT of the chest IMPRESSION: 1. Extensive left lower lobe pneumonia with very dense consolidation in the mid aspect of the left lower lobe. A pulmonary mass in this region could be obscured. Suggest follow-up exam following adequate treatment. 2. Probable postinflammatory fibrotic changes in the right upper lobe. 3. Left adrenal mass heterogeneous and somewhat hyperdense. Neoplasm or adrenal hemorrhage is considered. 08/21/2018 CT of the abdomen and pelvis IMPRESSION: 1. Left adrenal mass. Differential diagnosis would include metastatic disease, primary adrenal neoplasm, or adrenal hemorrhage 2. Possible enteritis 08/22/2018 repeat chest x-ray IMPRESSION: No change left lower lobe pneumonia and chronic changes on the right 08/22/18 CT of head w and w/0contrast IMPRESSION: Negative CT of the head without and with contrast 08/22/18 CXR after deep line insertion IMPRESSION: 1. Small left pneumothorax slightly larger. 2. No change in the severe left lower lobe pneumonia with pleural thickening in the right apex 08/22/18 repeat CXR IMPRESSION: Overall no change in the small left apical pneumothorax, tubes and lines, left-sided pneumonia with small effusion and pleural thickening in the right apex 08/22/18 repeat CXR after intubation IMPRESSION: 1. Good position of endotracheal tube and nasogastric tube. 2. Small left apical pneumothorax slightly smaller with questionable medial component. 3. No change left lower lobe pneumonia Laboratory Tests 08/21/18 20:08 Urine Opiates Screen Negative Urine Methadone Screen Negative Ur Barbituates Screen Negative Ur Phencyclidine Scrn Negative Ur Amphetamines Screen Negative U Benzodiazepines Scrn Negative Urine Cocaine Screen Negative U Marijuana (THC) Screen Positive H Labs on day of discharge: Labs from last 24 hours 08/22/18 08/22/18 08/22/18 14:19 10:20 10:20 WBC 54.7 H* RBC 3.92 L Hgb 12.3 Hct 38.8 MCV 98.9 MCH 31.4 H MCHC 31.8 RDW 16.2 Plt Count 346 MPV 8.7 Neut % (Auto) 94.2 H Lymph % (Auto) 2.2 L [place] % (Auto) 3.2 Eos % (Auto) 0.0 L Baso % (Auto) 0.4 Neut # (Auto) 51.5 H Lymph # (Auto) 1.2 [place] # (Auto) 1.7 H Eos # (Auto) 0.0 Baso # (Auto) 0.2 Total Counted Neutrophils % (Manual) Band Neutrophils % Lymphocytes % (Manual) Monocytes % (Manual) Metamyelocytes % Myelocytes % Platelet Estimate RBC Morphology Specimen Source Right brachial O2 % 50 ABG pH 7.32 L ABG pCO2 44.9 ABG pO2 91.9 ABG HCO3 22.6 ABG Total CO2 24.0 ABG O2 Saturation 97 ABG Base Excess -3.5 L José Miguel Test Acceptable Vent Rate 18 Tidal Volume 450 PEEP 5 Sodium Potassium Chloride Carbon Dioxide Anion Gap BUN Creatinine Estimated Creat Clear Estimated GFR Est GFR ( Amer) Glucose Lactate 1.5 Calcium B-Natriuretic Peptide 08/22/18 08/22/18 08/22/18 10:20 10:20 05:45 WBC RBC Hgb Hct MCV MCH MCHC RDW Plt Count MPV Neut % (Auto) Lymph % (Auto) [place] % (Auto) Eos % (Auto) Baso % (Auto) Neut # (Auto) Lymph # (Auto) [place] # (Auto) Eos # (Auto) Baso # (Auto) Total Counted 100 Neutrophils % (Manual) 73 Band Neutrophils % 19.0 H Lymphocytes % (Manual) 2 L Monocytes % (Manual) 4 Metamyelocytes % 1.0 Myelocytes % 1 Platelet Estimate Normal RBC Morphology Not Reportable Specimen Source O2 % ABG pH ABG pCO2 ABG pO2 ABG HCO3 ABG Total CO2 ABG O2 Saturation ABG Base Excess José Miguel Test Vent Rate Tidal Volume PEEP Sodium 149 H Potassium 4.0 Chloride 111 H Carbon Dioxide 28 Anion Gap 14.0 BUN 52 H Creatinine 0.88 Estimated Creat Clear 43 Estimated GFR 64 Est GFR ( Amer) 78 Glucose 166 H D Lactate Calcium 7.6 L B-Natriuretic Peptide 748 H Preliminary micro results at discharge 08/21/18 11:09 Urine Culture - Preliminary Urine,Clean Catch NO GROWTH AFTER 24 HOURS DS: Diagnosis - Discharge Diagnosis (1) Respiratory failure with hypercapnia Status: Acute (2) LLL pneumonia Status: Acute (3) Abdominal pain Status: Acute (4) COPD exacerbation Status: Acute (5) Leukemoid reaction Status: Acute (6) Tobacco use disorder Status: Chronic (7) Altered mental status Status: Acute (8) Tachycardia with heart rate 121-140 beats per minute Status: Acute Discharge Plan - Patient Discharge Instructions ACTIVITY: Continue current activity DIET: continue same diet Patient Instructions: Pneumonia-Adult, Chronic Obstructive Pulmonary Disease, DI for Chronic Obstructive Pulmonary Disease, DI for Pneumonia -- Adult, DI for Respiratory Failure, Respiratory Failure Forms: Transfer Record - Follow up Plan Disposition: Xfer Short-Term Hosp Home Medications: Home Medications Medication Instructions Recorded Confirmed Type Albuterol Sulfate [Albuterol 2.5 mg IH Q4HP PRN 08/21/18 08/21/18 History 0.083% 2.5mg/3mL neb] Clotrimazole/Betamethasone Dip 1 applicatio TOPICAL DAILY PRN 08/21/18 08/22/18 History [Lotrisone cream 15gm tube] Cyclobenzaprine HCl 10 mg PO TIDP PRN 08/21/18 08/22/18 History [Cyclobenzaprine 10mg Tab] Diclofenac Sodium [Diclofenac Sod 1 applicatio TP DAILYP PRN 08/21/18 08/22/18 History 100gm Topical Gel] Fluticasone/Umeclidin/Vilanter 2 puffs INHALATION DAILY 08/21/18 08/21/18 History [Trelegy Ellipta 100-62.5-25] Linaclotide [Linzess] 145 mcg PO DAILY 08/21/18 08/21/18 History Pantoprazole Sodium [Protonix 40mg 40 mg PO DAILY 08/21/18 08/21/18 History tablet] Sertraline HCl [Zoloft 100mg 100 mg PO DAILY 08/21/18 08/21/18 History tablet] Valacyclovir HCl [Valacyclovir] 1 gm PO DAILY 08/21/18 08/21/18 History Prescriptions/Medication Reconciliation: Continued Cyclobenzaprine HCl [Cyclobenzaprine 10mg Tab] 10 mg PO TIDP PRN PRN Reason: Muscle Spasm Clotrimazole/Betamethasone Dip [Lotrisone cream 15gm tube] 1 applicatio TOPICAL DAILY PRN PRN Reason: Skin Irritation Diclofenac Sodium [Diclofenac Sod 100gm Topical Gel] 1 applicatio TP DAILYP PRN PRN Reason: Neck pain Fluticasone/Umeclidin/Vilanter [Trelegy Ellipta 100-62.5-25] 2 puffs INHALATION DAILY Linaclotide [Linzess] 145 mcg PO DAILY Pantoprazole Sodium [Protonix 40mg tablet] 40 mg PO DAILY Sertraline HCl [Zoloft 100mg tablet] 100 mg PO DAILY Valacyclovir HCl [Valacyclovir] 1 gm PO DAILY Albuterol Sulfate [Albuterol 0.083% 2.5mg/3mL neb] 2.5 mg IH Q4HP PRN PRN Reason: Dyspnea
--- NOTE | 2018-08-23 16:45 | Cardiology Report ---
PROCEDURE: 2-D M-mode and color Doppler study INDICATIONS FOR THE TEST: Chest pain COPD+ Heart Murmur Tobacco Smoking+ Palpitations Fatigue Syncope Edema Hypertension Diabetes Mellitus Rheumatic Fever SOB+RAMOS+Obesity Hyperlipidemia Family History HD Additional History O2 DEPENDENT PATIENT INFORMATION HEIGHT: 64 WEIGHT:108 GENDER: Female B/P:150/75 2-D/M-MODE INTERPRETATION: 2-D MEASUREMENTS OBSERVED VALUES IN CMS Right Ventricular Dimension (RVDd) 2.1 Interventricular Septum (Thickness)(IVsd) 1.1 Left Ventricular Internal Dimensions(LVIDd) 3.7 Left Ventricular Posterior Wall (Thickness)(LVPWd) 1.0 Aortic Root 3.1 Aortic Cusp Separation 1.9 Left Atrial Dimensions (LAD) 2.8 2D 1. Technically difficult study because of the patient's factor and poor acoustic windows. 2. Left atrium is normal size, left ventricle is normal size, hyperdynamic left ventricular systolic function, visually estimated ejection fraction over 65% with no regional wall motion abnormality. 3. The right atrium and right ventricle are normal size and contractility. 4. The aortic valve is thickened and calcified leaflet continue to display mobility. 5. The mitral valve has mitral annular calcification, leaflets are minimally thickened. 6. The pulmonic valve is poorly visualized. 7. No significant pericardial effusion noted. DOPPLER INTERROGATION: Doppler interrogation of the aortic, mitral and tricuspid valvular presence of mild mitral and tricuspid regurgitation, tricuspid regurgitation jet velocity is inadequate for calculation of the right ventricular systolic pressure, diastolic parameters are inconclusive. CONCLUSION: 1. Technically difficult study because of the patient's factor and poor acoustic windows 2. Normal left ventricular size, hyperdynamic left ventricular systolic function, visually estimated ejection fraction over 65% with no regional wall motion abnormality, diastolic parameters are inconclusive. 3. Mild mitral and tricuspid regurgitation 4. No significant pericardial effusion noted.
== END 2018-08-22 17:50 | disposition short-term general hospital (02) | DRG 208 ==
LOC: ER 09:22 → 2ND 11:15
PROVIDERS: ADMIT Family Medicine; ATTEND Family Medicine
CPT/HCPCS: 36415; 70470; 71010; 71045; 71250; 74176; 80048; 80053; 80305; 81001; 82803; 83605; 83735; 83880; 84484; 85007; 85025; 87040; 87070; 87086; 87205; 93005; 93306; 94640; 94660; 96365; 96366; 96367; 96375; 99285; J0330; J0456; J2704; Q9967